=== PATIENT | male | born 1955 | race Two or more races ===

== ENCOUNTER 2018-08-16 14:50 | Outpatient (CLI) | payer OTHER | END 2018-08-16 15:00 | disposition home or self-care (01) | LOC: RAD 501 14:50 | DX: M25.552 Pain in left hip (principal) ==

== ENCOUNTER → 2018-12-31 | Outpatient (CLI) | payer OTHER | END | disposition home or self-care (01) | LOC: NUCLEAR 07:00 | DX: I20.9 Angina pectoris, unspecified (principal); I25.10 Atherosclerotic heart disease of native coronary artery without angina pectoris; I25.2 Old myocardial infarction | CPT/HCPCS: 78452; 93017; A9500 ==

== ENCOUNTER 2020-02-20 12:15 | Outpatient (CLI) | payer OTHER | END 2020-02-20 12:18 | disposition home or self-care (01) | LOC: SONOGRAMA 12:15 | PROVIDERS: ATTEND Pathology Anatomic Pathology & Clinical Pathology | DX: E04.2 Nontoxic multinodular goiter (principal) ==